=== PATIENT | male | born 1980 | race Caucasian/White ===

== ENCOUNTER 2024-11-03 08:27 | Emergency (ER) | payer BC ==
[~2024-11-03] VITALS: Ht 182.9 cm; Wt 107.3 kg
[2024-11-03 09:00] LABS: BASOPHILS 0.9 % (0-2); EOSINOPHILS 0.2 % (0-6); HEMATOCRIT 50.3 % (35.0-50.0); HEMOGLOBIN 18.2 g/dL (12.0-18.0); LYMPHOCYTES 23.8 % (24-44); MCH 33.7 (27-36); MCHC 36.1 g/dl (30-36); MCV 93.2 fl (81-99); MONOCYTES 14.2 % (0-12); NEUTROPHILS 60.9 % (39-80); PLATELET COUNT 237 K/uL (140-440); RDW 13.4 (10.5-15.0)
[2024-11-03] MEDS ORDERED: PANTOPRAZOLE SODIUM 40 MG/10 ML VIAL IV ONE (09:00)
[2024-11-03 09:23] LABS: CORONAVIRUS COVID-19 AG NEGATIVE (NEGATIVE); INFLUENZA A AG NEGATIVE (NEGATIVE); INFLUENZA B AG NEGATIVE (NEGATIVE)
[2024-11-03 09:36] LABS: INR 0.95 (0.80-1.30); PROTIME 12.5 Sec (11.2-14.2)
[2024-11-03 09:40] LABS: ALBUMIN 3.6 g/dL (3.4-5.0); ALBUMIN/GLOBULIN RATIO 0.84 (1.1-2.4); ANION GAP 14.2 (7-21); BILIRUBIN, TOTAL 0.4 mg/dL (0.2-1.0); CALCIUM 8.7 mg/dL (8.5-10.1); CREATININE, SERUM 1.3 mg/dL (0.70-1.30); POTASSIUM 3.2 mmol/L (3.5-5.1); PROTEIN, TOTAL 7.9 g/dL (6.4-8.2)
[2024-11-03 10:06] LABS: ABO A; ANTIBODY SCREEN NEGATIVE; RH POSITIVE
[2024-11-03] MEDS ORDERED: SODIUM CHLORIDE 0.9% 1,000 ML IV PRN (10:45)
[2024-11-03] MEDS ORDERED: AZITHROMYCIN 500 MG in DEXTROSE 5% 250 ML IV ONE (13:15)
[2024-11-03] MEDS ORDERED: CEFTRIAXONE SODIUM 1 GM in SODIUM CHLORIDE 0.9% 100 ML IV ONE (13:15)
[2024-11-03] MEDS ORDERED: CEFTRIAXONE SODIUM 1 GM VIAL IV ONE (13:32)
[2024-11-03] MEDS ORDERED: ZITHROMAX250 MG PO (13:36)
[2024-11-03] MEDS ORDERED: AMOX TR-K CLV1 EAC1 PO (13:36)
[2024-11-03] MEDS ORDERED: CARAFATE1 GM PO (13:46)
[2024-11-03] MEDS ORDERED: OMEPRAZOLE40 MG PO (13:46)
[2024-11-03 15:36] VITALS: BP 135/81
== END 2024-11-03 15:36 | disposition home or self-care (01) ==
LOC: ED 08:27
PROVIDERS: Emergency Medicine
DX: J18.9 Pneumonia, unspecified organism (principal)
CPT/HCPCS: 36415; 71046; 71250; 74177; 80053; 85025; 85610; 86850; 86900; 86901; 96375; 99285-25; J0456; J0696; J2470; J7030; J7060; Q9967